=== PATIENT | male | born 1965 | race Caucasian/White ===

== ENCOUNTER → 2016-09-07 | Outpatient (CLI) | payer OTHER ==
[~2016-09-07] MED LIST: ALBUTEROL 0.5ML INH; ALBUTEROL17 GM; ALBUTEROL17 GM INH; AMLODIPINE BESYL5 MG PO; ASPIRIN81 MG PO; CELEXA20 MG PO; CLOPIDOGREL75 MG PO; IMDUR-ER30 M1 PO; LIPITOR80 MG PO; LISINOPRIL20 MG PO; LOPRESSOR PO; MELOXICAM15 MG PO; METOPROLOL TAR25 MG PO; METOPROLOL TART75 MG PO; NITROGLYCERIN0.4 MG SL; NO MEDICATIONS; NORVASC10 MG PO; OMEPRAZOLE20 M2 PO; PERCOCET5/325 PO; PREDNISONE10 MG PO; PROTONIX PO; SYMBICORT INH; ULORIC80 MG PO
--- NOTE | ~2016-09-07 | CR206 ---
[facility] Service of [facility] RADIOLOGY TEXT RESULTS PATIENT: JEFF BARAJAS JR LOCATION: [facility] : 63 UNIT #: [id number] AGE: [address]: Hoa Segundo MD SEX: M ORDER DR: [id number] [facility] [address] [place], [place] [address] [id number] O MR#: [id number] Acc #: [id number] NAME: JEFF BARAJAS : 1965 SEX: M STUDY DATE/TIME: 09/07/2016 9:37 UNIT: [facility] ROOM: STUDY DESCRIPTION: CR Pelvis 1 or 2 Views Attending Physician: Hoa Segundo M.D. Ordering Physician: Hoa Segundo M.D. MEDICAL IMAGING REPORT This report is preliminary unless electronic signature is present EXAM AP pelvis 09/07/2016 HISTORY Bilateral hip pain for 1 year, bursitis and arthritis with no known injury. FINDINGS AP, supine examination of the pelvis shows satisfactory mineralization of the bony pelvis. The sacroiliac joints are normal. There is no indication of congenital defect, fracture, or dislocation at the articular anatomy of the sacral segments or of the hip joints. No malignant, lytic, or blastic change is present. IMPRESSION Normal pelvis. Dictated by... Jesus Woods M.D. THIS IS AN ELECTRONICALLY VERIFIED REPORT Jesus Woods M.D. at 09/08/2016 10:30 AM Bailee TD: 09/07/2016 15:51 JOB #: [id number] MEDICAL IMAGING REPORT Page 1 of 1 COPY
== END | disposition home or self-care (01) ==
LOC: CRAD 09:16
DX: M70.70 Other bursitis of hip, unspecified hip (principal)
CPT/HCPCS: 72170

== ENCOUNTER 2016-10-06 09:24 | Observation (INO) | payer OTHER ==
--- NOTE | ~2016-10-06 | EKG ---
PATIENT: JEFF BARAJAS UNIT #: [id number] Ventricular Rate: 59 BPM Atrial Rate: 59 BPM P-R Interval: 178 ms QRS Duration: 94 ms Q-T Interval: 440 ms QTC Calculation(Bezet): 435 ms P [place]: 16 degrees Calculated R [place]: 15 degrees Calculated T [place]: 31 degrees Diagnosis Line: Sinus bradycardia Diagnosis Line: Otherwise normal ECG Diagnosis Line: When compared with ECG of 08-JUL-2016 05:27, Diagnosis Line: No significant change was found Diagnosis Line: Confirmed by LYNETTE ANTONIO MD ([id number]) on Diagnosis Line: 10/06/2016 10:27:07 PM INTERPRETING : BARRETT
--- NOTE | ~2016-10-06 | CO ---
Unit #: [id number] #: [id number] Patient: JEFF BARAJAS JR [id number] [address] [place], [place] [address] [id number] I MR#: [id number] NAME: JEFF BARAJAS JR ROOM: 316 Age: 50 Sex: M Admission Date: 10/06/2016 : 1965 Attending Physician: Rebecca Shay M.D. Primary Care Physician: Rebecca Shay M.D. Consultation Date: 10/06/2016 CONSULTATION REPORT REASON FOR CONSULTATION Chest pain. HISTORY OF PRESENT ILLNESS This is a 50-year-old male well known to Dr. Landeros. He was last seen in the office in 08/2016. He has a prior history of coronary artery disease. A cardiac cath in 05/2017 showed an EF of 55%, ramus intermedius branch of left main coronary artery with 70% stenosis in proximal third and the distal vessel being normal. He has been treated medically. He also has a prior history of hypertension, hyperlipidemia, GERD, presyncope, former tobacco abuse, and reformed alcohol abuse. He was sent from his primary care physician's office today for evaluation of recurrent chest pain. He was recently evaluated in the hospital in 06/2016 for chest pain and presyncope, where his medications were adjusted. States since then he has had occasional dizziness, but not as often. He does report recurrent chest discomfort daily, described as tightness across his lateral chest with no nausea, no diaphoresis, no radiating pain. At other times, he has sharp shooting pains from his left chest to his left axilla and left scapula. No accompanied symptoms with those pains. His chest discomfort can last anywhere from 20 minutes to 2 hours and they relieved with nitroglycerin. Reports he has been taking 2 to 3 nitroglycerin with these episodes. He is currently chest pain free. PAST MEDICAL HISTORY 1. Coronary artery disease. 2. Cardiac cath in 05/2016 which showed 70% proximal third of ramus. 3. Abnormal Lexiscan in 05/2016 which showed small inferior ischemia and an EF of 55%. 4. Echocardiogram on 06/09/2016 showed an EF of 55%, mild concentric left ventricular hypertrophy, and trace mitral regurg. 5. Hypertension. 6. Hyperlipidemia. 7. COPD. 8. GERD. 9. Seizure disorder secondary to alcohol abuse. 10. Upper GI bleed secondary to alcohol abuse. 11. Reformed tobacco and alcohol user. PAST SURGICAL HISTORY 1. Cardiac cath in 05/2016. 2. EGD in 01/2015. 3. Open reduction and internal fixation of the left ankle due to fracture Unit #: [id number] #: [id number] Patient: JEFF BARAJAS JR in 04/2015. SOCIAL HISTORY 1. Reformed alcohol use. 2. Reformed smoker. FAMILY HISTORY Father of [place] at age of 52. ALLERGIES No known allergies. HOME MEDICATIONS Amlodipine 5 mg p.o. at bedtime, Plavix 75 mg p.o. daily, Ventolin 2 puffs q.4 hours p.r.n., Symbicort 2 puffs b.i.d., Uloric 80 mg p.o. daily, meloxicam 15 mg p.o. daily, metoprolol tartrate 75 mg p.o. b.i.d., Imdur ER 30 mg p.o. daily, aspirin 81 mg p.o. daily, lisinopril 20 mg p.o. daily, Lipitor 80 mg p.o. daily, and omeprazole 20 mg p.o. daily. REVIEW OF SYSTEMS CONSTITUTIONAL: The patient denies fever, chills, or fatigue. HEENT: The patient denies sore throat, ear pain, or runny nose. CARDIOVASCULAR: Episodic chest pain. Denies irregular rhythm or palpitations. CHEST: The patient denies shortness of breath, cough, or hemoptysis. GI: Denies vomiting or diarrhea. Occasional nausea. No chronic constipation. ENDOCRINE: Denies history of increased thirst or urination. No recent significant weight loss or gain. : Denies dysuria, frequency, or hematuria. SKIN: Denies any unusual rash or lesions. HEMATOLOGIC: Denies any increased bleeding or bruising. MUSCULOSKELETAL: Denies any hot or swollen joints. No generalized muscle pain. NEUROLOGIC: Denies problems with speech or vision. No numbness, tingling, or weakness in any extremities. Denies loss of bowel or bladder control. Endorses dizziness. PHYSICAL EXAMINATION GENERAL: This is a 50-year-old male. He is resting in bed, in no acute distress. VITAL SIGNS: Temperature 97.6, heart rate 64, respiratory rate 16, blood pressure 159/89. Height 71 inches, weight 112 kg. HEENT: Head is atraumatic and normocephalic. Pupils are equal and round. Mucous membranes are moist. NECK: Supple. Trachea is midline. Negative for JVD. LUNGS: Clear to auscultation. CARDIOVASCULAR: S1, S2. Regular rate and rhythm. Negative for murmur or gallop. ABDOMEN: Soft, nontender, nondistended. EXTREMITIES: Pulses are palpable. No pedal edema. No cyanosis. NEUROLOGIC: Alert and oriented x3. Moves all extremities equally and follows commands without difficulty. DIAGNOSTIC STUDIES LABORATORY RESULTS: Sodium 135, potassium 4.4, chloride 102, CO2 of 28, BUN 15, creatinine 0.9, glucose 89. Hemoglobin 15, hematocrit 44.2, white blood cell count 6.5, platelets 147. AST 56, ALT 80, alk phos 59. Unit #: [id number] #: [id number] Patient: JEFF BARAJAS JR IMAGING STUDIES: None at this time. CARDIOVASCULAR STUDIES: EKG shows sinus bradycardia. No acute ischemic changes. ASSESSMENT 1. Chest pain may be secondary to ischemic heart disease with history of ramus stenosis. 2. Reformed smoker. 3. Hyperlipidemia. 4. Hypertension. PLAN This is a 50-year-old male with history of known coronary artery disease. We were asked to see him to evaluate for recurrent chest pain. We discussed in great detail his choice of adjusting the medications for medical management versus angioplasty on his ramus artery. He wants to try medical management at this time. We will increase his nitrates. If chest pain persists recurrently, would proceed with PCI on his ramus in the future. Thank you for asking us to see this patient. We appreciate the consult. Dictated by... RADAMES Robbins/magdiel TD: 10/07/2016 05:34 JOB #: [id number] CONSULTATION REPORT Page 1 of 1 X X CONSULTATION REPORT
--- NOTE | ~2016-10-06 | DS ---
Unit #: [id number] #: [id number] Patient: MAYCO COOPER JR [id number] [address] [address] [id number] I MR#: [id number] NAME: MAYCO COOPER JR ROOM: 316 Age: 50 Sex: M Admission Date: 10/06/2016 : 1965 Discharge Date: 10/07/2016 Attending Physician: Rebecca Shay M.D. Primary Care Physician: Rebecca Shay M.D. DISCHARGE SUMMARY SHORT STAY SUMMARY CHIEF COMPLAINT Chest pain. HISTORY OF PRESENT ILLNESS Mr. Mayco Cooper is a 50-year-old male who has history of coronary artery disease. He had a cardiac catheterization done in May 2016 which showed ejection fraction of 55% and 70% stenosis in the proximal third of the left main coronary artery. The patient came to the office complaining of chest pain for the last two to three weeks or so, had to take nitroglycerin almost every other day or so. One time, he had to take two tablets. The patient was admitted to the hospital with possible unstable angina and Dr. Landeros was consulted. Patient did not complain of any radiation of the pain to the left arm. Did not complain of radiation of pain to the neck. He does get occasional dizziness. He has not had any syncopal episode. There is no sweating. At this time, patient is chest pain-free. According to patient, increasing the dose of Imdur must have helped. PAST MEDICAL HISTORY 1. Coronary artery disease. 2. Cardiac catheterization in May 2016 showed 70% proximal third of ramus. 3. Hypertension. 4. Hyperlipidemia. 5. COPD. 6. Seizure disorder secondary to alcohol abuse. 7. Reformed tobacco and alcohol user. PAST SURGICAL HISTORY 1. Cardiac cath. 2. EGD. 3. Open reduction internal fixation of left ankle due to fracture. HOME MEDICATIONS 1. Plavix 75 mg daily. 2. Ventolin inhaler p.r.n. 3. Symbicort two puffs b.i.d. 4. Uloric 80 mg daily. 5. Meloxicam 15 mg daily. 6. Metoprolol 75 mg b.i.d. 7. Imdur ER 30 mg daily. Unit #: [id number] #: [id number] Patient: MAYCO COOPER JR 8. Aspirin 81 mg daily. 9. Lisinopril 20 mg daily. 10. Lipitor 80 mg daily. 11. Omeprazole 20 mg daily. 12. Amlodipine 5 mg h.s. ALLERGIES No known drug allergies. SOCIAL HISTORY Patient has a history of smoking, quit in May 2016. History of alcohol abuse, quit in May 2016. FAMILY HISTORY Patient's father had coronary artery disease, at the age of 52 with ME. REVIEW OF SYSTEMS CONSTITUTIONAL: No history of fever, chills or rigors. CARDIOVASCULAR: Chest pain as per history of present illness. No leg swelling. GASTROINTESTINAL: No history of abdominal pain. No nausea, vomiting, no constipation or diarrhea. GENITOURINARY: No dysuria. SKIN: No issues. No bruising. MUSCULOSKELETAL: No joint pain. NEUROLOGIC: No numbness or tingling. PHYSICAL EXAMINATION VITAL SIGNS: Blood pressure 136/86, respiratory rate 18, pulse 58, temperature 97.5, oxygen saturation is 98%. GENERAL: The patient is lying comfortably in bed, does not seem to be in any respiratory distress. HEAD: Normocephalic. Eye movements are normal. Pupils are equal and reacting to light. NECK: Supple. CHEST: Fair air entry, no additional sounds. HEART: S1, S2 positive, regular rhythm. No murmur. ABDOMEN: Nontender, soft to touch. Bowel sounds are positive. EXTREMITIES: Pulses are palpable, no edema. NEUROLOGIC: Awake, alert, oriented x3. No focal neurologic deficit. DIAGNOSTIC STUDIES LABORATORY: WBC 6.5, hemoglobin 15.0, hematocrit 44.2, platelet count 147. Troponin less than 0.03. Sodium 135, potassium 4.4, chloride 102, BUN 15, creatinine 0.9, AST 56, ALT 80. CARDIOVASCULAR: EKG shows normal sinus rhythm, sinus bradycardia, no significant change from previous. HOSPITAL COURSE The patient was admitted to telemetry unit at [facility]. Acute myocardial infarction was ruled out. Dr. Landeros was consulted. Imdur dose has been increased to [address] Landeros has discussed with patient about choice of adjusting the medication for medical management versus angioplasty on his ramus artery. It has been decided to go ahead with medical management at this time. If chest pain persists recurrently then patient may require PCI. Patient verbalized Unit #: [id number] #: [id number] Patient: MAYCO COOPER JR understanding. Plan of care has been discussed at length. DISCHARGE MEDICATIONS 1. Imdur 60 mg daily. 2. Rest of the medications to be continued as same. DISCHARGE INSTRUCTIONS 1. The patient will follow up with primary care provider in 4-6 weeks. 2. Follow with Dr. Landeros as scheduled. Dictated by... Teri Poole/katina TD: 10/07/2016 21:23 JOB #: [id number] DISCHARGE SUMMARY Page 1 of 1 X Rebecca Shay MD X DISCHARGE SUMMARY
[~2016-10-06 09:24] MED LIST changes: -AMLODIPINE BESYL5 MG PO
[2016-10-06] MEDS ORDERED: AMLODIPINE BESYL5 MG PO (09:56)
[2016-10-06 10:19] LABS: HEMATOCRIT 44.2 % (38.0-50.0); MEAN CELL VOLUME 89.1 FL (83-96); MEAN CORPUSCULAR HEMOGLOBIN 30.1 PG (28-34); MEAN CORPUSCULAR HGB CONC 33.8 g/dL (30-36); MEAN PLATELET VOLUME 10.7 FL (6.5-11.5); RED BLOOD COUNT 4.97 X10e (3.90-5.60); WHITE BLOOD COUNT 6.5 X10e3 (4.0-10.5)
[2016-10-06 11:05] LABS: ALBUMIN SERUM 4.1 g/dL (3.5-5.0); BILIRUBIN,TOTAL 0.9 mg/dL (0.2-2.0); BUN/CREATININE RATIO 16.66; CALCIUM SERUM 9.2 mg/dL (8.4-10.2); CREATININE SERUM 0.9 mg/dL (0.6-1.4); GLOM FILT RATE Estimated 98.5 mL/min (>60); POTASSIUM 4.4 mmol/L (3.5-5.1); PROTEIN TOTAL SERUM 7.9 g/dL (6.0-8.3)
[2016-10-06 11:25] LABS: %MB 0.9 % (0.0-4.0); MB 0.6 ng/ml
== END 2016-10-07 15:57 | disposition home or self-care (01) ==
LOC: C3A PCU 09:24
PROVIDERS: Physician Assistant Medical
DX: R07.9 Chest pain, unspecified (principal); I25.10 Atherosclerotic heart disease of native coronary artery without angina pectoris; I10 Essential (primary) hypertension; E78.5 Hyperlipidemia, unspecified; J44.9 Chronic obstructive pulmonary disease, unspecified; Z98.890 Other specified postprocedural states; Z79.899 Other long term (current) drug therapy; Z79.02 Long term (current) use of antithrombotics/antiplatelets; Z79.1 Long term (current) use of non-steroidal anti-inflammatories (NSAID); Z79.82 Long term (current) use of aspirin; Z87.891 Personal history of nicotine dependence; Z82.49 Family history of ischemic heart disease and other diseases of the circulatory system
CPT/HCPCS: 80053; 82550; 82553; 84484; 85027; 93005; 94640; 94760; 96372; G0378; J1650